=== PATIENT | female | born 1955 | race Caucasian/White ===

== ENCOUNTER 2017-09-29 12:12 | Emergency (ER) | payer MEDICAID, OTHER ==
[~2017-09-29] VITALS: Ht 162.6 cm; Wt 53.0 kg
[2017-09-29] MEDS ORDERED: LORazepam 2 MG/ML, 1ML IVPush ONE (12:30)
[2017-09-29] MEDS ORDERED: SODIUM CHLORIDE FLUSH 10ML SYR IVF ONE (12:30)
[2017-09-29] MEDS ORDERED: LEVETIRACETAM 1,000 MG in SODIUM CHLORIDE 0.9% 100 ML IV ONE (12:30)
[2017-09-29] MEDS ORDERED: LORazepam 2 MG/ML, 1ML ONE (12:39)
[2017-09-29 12:46] LABS: HEMATOCRIT 47.5 % (34.6-47.8); HEMOGLOBIN 15.9 g/dL (11.7-16.4); WHITE BLOOD COUNT 5.2 x10^3/uL (3.4-10)
[2017-09-29 12:55] LABS: ACETAMINOPHEN < 2 mcg/mL (10-30); ASPARTATE AMINO TRANSFERASE 37 U/L (15-37); BLOOD UREA NITROGEN 11 mg/dL (7-18)
[2017-09-29 13:01] LABS: IS PT STATUS REG ER OR PRE ER? YES
[2017-09-29] MEDS ORDERED: LEVO25TA4 PO (14:00)
[2017-09-29] MEDS ORDERED: IBUP200T64 PO (14:01)
[2017-09-29 14:39] VITALS: BP 116/77
[2017-09-29] MEDS ORDERED: CODE1CAP9 PO (14:39)
[2017-09-29] MEDS ORDERED: BUTALB/APAP/CAFFEINE 50MG/325MG/40MG PO ONE (15:00)
[2017-09-29] MEDS ORDERED: SODIUM CHLORIDE 0.9%, 500ML IVBOLUS ONE (15:00)
== END 2017-09-29 16:05 | disposition home or self-care (01) ==
LOC: ED 12:16
DX: R56.9 Unspecified convulsions (principal); J45.909 Unspecified asthma, uncomplicated
CPT/HCPCS: 36415; 70450; 71010; 80053; 80307; 80329; 82140; 83605; 84484; 85025; 93005; 96365; 96375; 99285; J1953; J2060; J7040; G0479; G0480

== ENCOUNTER 2020-09-18 11:52 | Outpatient (CLI) | payer MEDICAID ==
[~2020-09-18 11:52] MED LIST: CODE1CAP9 PO; IBUP200T64 PO; LEVO25TA4 PO
[2020-09-18] MEDS ORDERED: FENTANYL PF 100 MCG/2ML ONE (13:03)
[2020-09-18] MEDS ORDERED: NALOXONE 1 MG/ML, 2ML ONE (13:04)
[2020-09-18] MEDS ORDERED: FLUMAZENIL 0.1 MG/1 ML, 5ML ONE (13:04)
[2020-09-18] MEDS ORDERED: MIDAZOLAM 1 MG/ML, 5ML ONE (13:04)
== END 2020-09-18 23:59 | disposition home or self-care (01) ==
LOC: RAD 11:52
PROVIDERS: ATTEND Nurse Practitioner
DX: G43.109 Migraine with aura, not intractable, without status migrainosus (principal); M25.512 Pain in left shoulder; M25.511 Pain in right shoulder; M19.012 Primary osteoarthritis, left shoulder; M75.81 Other shoulder lesions, right shoulder; J45.909 Unspecified asthma, uncomplicated; F12.90 Cannabis use, unspecified, uncomplicated; N18.30 Chronic kidney disease, stage 3 unspecified; Z91.013 Allergy to seafood; Z88.8 Allergy status to other drugs, medicaments and biological substances; Z79.82 Long term (current) use of aspirin; Z79.899 Other long term (current) drug therapy; Z72.89 Other problems related to lifestyle
CPT/HCPCS: 70551; 73221; 99156; 99157; J2250; J3010; J2310